=== PATIENT | male | born 1975 | race Caucasian/White ===

== ENCOUNTER 2016-07-29 12:33 | Emergency (ER) | payer SELFPAY ==
[~2016-07-29] VITALS: Ht 198.1 cm; Wt 68.2 kg
[~2016-07-29 12:33] MED LIST: LEVO50TA PO; METO25TA35 PO
[2016-07-29 12:38] VITALS: BP 155/85
== END 2016-07-29 13:27 | disposition home or self-care (01) ==
LOC: ED 12:55
DX: Z76.0 Encounter for issue of repeat prescription (principal); I10 Essential (primary) hypertension; E03.9 Hypothyroidism, unspecified; F17.200 Nicotine dependence, unspecified, uncomplicated
CPT/HCPCS: 99283

== ENCOUNTER 2016-12-23 12:05 | Emergency (ER) | payer SELFPAY ==
[~2016-12-23] VITALS: Ht 198.1 cm; Wt 67.4 kg
[2016-12-23 12:39] VITALS: BP 131/79
== END 2016-12-23 13:15 | disposition home or self-care (01) ==
LOC: ED 12:59
DX: Z76.0 Encounter for issue of repeat prescription (principal); E03.9 Hypothyroidism, unspecified; I10 Essential (primary) hypertension; Z79.899 Other long term (current) drug therapy
CPT/HCPCS: 99283